=== PATIENT | female | born 1960 | race American Indian/Alaskan Native ===

== ENCOUNTER 2020-05-27 14:07 | Emergency (ER) | payer MEDICAID ==
[2020-05-27 14:16] VITALS: BP 140/93
[2020-05-27] MEDS ORDERED: traMADol 50 MG TAB PO ONE (15:53)
[2020-05-27] MEDS ORDERED: CLINDAMYCIN 300 MG CAP PO ONE (15:53)
--- NOTE | 2020-05-27 15:57 | Emergency Department Report ---
ED ENT HPI - General Chief complaint: Dental/Oral Stated complaint: TOOTH PAIN Time Seen by Provider: 05/27/20 15:29 Source: patient Mode of arrival: Ambulatory Limitations: No Limitations - History of Present Illness MD complaint: tooth pain -: Gradual, days(s) (3) Location: lower lip, other (left lower teeth) Severity: severe Severity scale (0 -10): 10 Quality: aching Consistency: constant Improves with: none Worsens with: eating, other (palpation) Context- Dental: history of dental caries, poor dental care Associated Symptoms: gum swelling, toothache - Related Data Previous Rx's Medication Instructions Recorded Last Taken Type Docusate Sodium [Colace] 100 mg PO BID #60 capsule 11/21/14 Unknown Rx AtorvaSTATin [Lipitor] 40 mg PO QHS #30 tablet 03/03/16 Unknown Rx Clopidogrel [Plavix] 75 mg PO QDAY 30 Days tablet 03/03/16 Unknown Rx Metoprolol [Lopressor TAB] 25 mg PO BID #60 tablet 03/03/16 Unknown Rx Ranolazine [Ranexa] 500 mg PO BID #60 tab.er.12h 03/03/16 Unknown Rx lisinopriL [Zestril TAB] 10 mg PO DAILY #30 tablet 03/03/16 Unknown Rx oxyCODONE /ACETAMINOPHEN [Percocet 1 tab PO Q6HR PRN #30 tablet 03/03/16 Unknown Rx 5/325 mg] Clindamycin [Clindamycin CAP] 300 mg PO Q6H #40 capsule 05/27/20 Unknown Rx Naproxen 500 mg PO Q6H PRN #20 tablet 05/27/20 Unknown Rx traMADoL [Ultram 50 MG tab] 50 mg PO Q6H PRN #12 tablet 05/27/20 Unknown Rx Allergies Allergy/AdvReac Type Severity Reaction Status Date / Time No Known Allergies Allergy Verified 11/17/14 15:47 ED Dental HPI - General Chief complaint: Dental/Oral Stated complaint: TOOTH PAIN Time Seen by Provider: 05/27/20 15:29 Source: patient Mode of arrival: Ambulatory Limitations: No Limitations - Related Data Previous Rx's Medication Instructions Recorded Last Taken Type Docusate Sodium [Colace] 100 mg PO BID #60 capsule 11/21/14 Unknown Rx AtorvaSTATin [Lipitor] 40 mg PO QHS #30 tablet 03/03/16 Unknown Rx Clopidogrel [Plavix] 75 mg PO QDAY 30 Days tablet 03/03/16 Unknown Rx Metoprolol [Lopressor TAB] 25 mg PO BID #60 tablet 03/03/16 Unknown Rx Ranolazine [Ranexa] 500 mg PO BID #60 tab.er.12h 03/03/16 Unknown Rx lisinopriL [Zestril TAB] 10 mg PO DAILY #30 tablet 03/03/16 Unknown Rx oxyCODONE /ACETAMINOPHEN [Percocet 1 tab PO Q6HR PRN #30 tablet 03/03/16 Unknown Rx 5/325 mg] Clindamycin [Clindamycin CAP] 300 mg PO Q6H #40 capsule 05/27/20 Unknown Rx Naproxen 500 mg PO Q6H PRN #20 tablet 05/27/20 Unknown Rx traMADoL [Ultram 50 MG tab] 50 mg PO Q6H PRN #12 tablet 05/27/20 Unknown Rx Allergies Allergy/AdvReac Type Severity Reaction Status Date / Time No Known Allergies Allergy Verified 11/17/14 15:47 ED Review of Systems ROS: Stated complaint: TOOTH PAIN Other details as noted in HPI Comment: All other systems reviewed and negative Constitutional: denies: chills, fever ENT: dental pain. denies: throat pain, congestion Respiratory: denies: cough, shortness of breath, wheezing Cardiovascular: denies: chest pain, palpitations Gastrointestinal: denies: abdominal pain, nausea, diarrhea Genitourinary: denies: urgency, dysuria, discharge Musculoskeletal: denies: back pain, joint swelling, arthralgia Skin: denies: rash, lesions Neurological: denies: headache, weakness, paresthesias Psychiatric: denies: anxiety, depression ED Past Medical Hx - Past Medical History Previous Medical History?: Yes Hx Hypertension: Yes Hx Heart Attack/AMI: No Hx Congestive Heart Failure: No Hx Diabetes: No Hx Liver Disease: No Hx Sickle Cell Disease: No Hx Seizures: No Hx Asthma: No Hx COPD: No Hx HIV: No - Surgical History Past Surgical History?: Yes Additional Surgical History: Hysterectomy with complications of an inadvertent bowel damage leading to colostomy. Colostomy reversal - Social History Smoking Status: Never Smoker - Medications Home Medications: Home Medications Medication Instructions Recorded Confirmed Last Taken Type Docusate Sodium [Colace] 100 mg PO BID #60 capsule 11/21/14 02/29/16 Unknown Rx AtorvaSTATin [Lipitor] 40 mg PO QHS #30 tablet 03/03/16 Unknown Rx Clopidogrel [Plavix] 75 mg PO QDAY 30 Days tablet 03/03/16 Unknown Rx Metoprolol [Lopressor TAB] 25 mg PO BID #60 tablet 03/03/16 Unknown Rx Ranolazine [Ranexa] 500 mg PO BID #60 tab.er.12h 03/03/16 Unknown Rx lisinopriL [Zestril TAB] 10 mg PO DAILY #30 tablet 03/03/16 Unknown Rx oxyCODONE /ACETAMINOPHEN [Percocet 1 tab PO Q6HR PRN #30 tablet 03/03/16 Unknown Rx 5/325 mg] Clindamycin [Clindamycin CAP] 300 mg PO Q6H #40 capsule 05/27/20 Unknown Rx Naproxen 500 mg PO Q6H PRN #20 tablet 05/27/20 Unknown Rx traMADoL [Ultram 50 MG tab] 50 mg PO Q6H PRN #12 tablet 05/27/20 Unknown Rx ED Physical Exam - General Limitations: No Limitations General appearance: alert, in no apparent distress - Head Head exam: Present: atraumatic, normocephalic, normal inspection - Eye Eye exam: Present: normal appearance, PERRL, EOMI Pupils: Present: normal accommodation - ENT ENT exam: Present: normal exam, normal orophraynx, mucous membranes moist, other (pt with very poor dentition. She has small dental abscess to left lower jaw around teeth 22,21,23; mild swelling to left lower lip; no facial cellulitis, drooling or trismus.) - Neck Neck exam: Present: normal inspection, lymphadenopathy (mild anterior cervical ) - Respiratory Respiratory exam: Present: normal lung sounds bilaterally. Absent: respiratory distress - Cardiovascular Cardiovascular Exam: Present: regular rate, normal rhythm. Absent: systolic murmur, diastolic murmur, rubs, gallop - Neurological Exam Neurological exam: Present: alert, oriented X3, CN II-XII intact - Psychiatric Psychiatric exam: Present: normal affect, normal mood - Skin Skin exam: Present: warm, dry, intact, normal color. Absent: rash ED Course Vital Signs 05/27/20 14:13 Temperature 99.4 F Pulse Rate 80 Respiratory 20 Rate Blood Pressure 140/93 [Right] O2 Sat by Pulse 97 Oximetry Critical care attestation.: If time is entered above; I have spent that time in minutes in the direct care of this critically ill patient, excluding procedure time. ED Disposition Clinical Impression: Dental abscess Disposition: TO HOME OR SELFCARE Is pt being admited?: No Does the pt Need Aspirin: No Condition: Stable Instructions: Dental Abscess (ED) Additional Instructions: Take pain medication and antibiotics as prescribed. Follow up with one of the dental clinics given on the list. Return to ED if worse Prescriptions: Clindamycin [Clindamycin CAP] 300 mg PO Q6H #40 capsule Naproxen 500 mg PO Q6H PRN #20 tablet PRN Reason: Pain , Severe (7-10) traMADoL [Ultram 50 MG tab] 50 mg PO Q6H PRN #12 tablet PRN Reason: Pain , Severe (7-10) Time of Disposition: 15:59
== END 2020-05-27 16:13 | disposition home or self-care (01) ==
LOC: ED 14:07
DX: K04.7 Periapical abscess without sinus (principal); I10 Essential (primary) hypertension; Z90.710 Acquired absence of both cervix and uterus; Z79.899 Other long term (current) drug therapy
CPT/HCPCS: 99282

== ENCOUNTER 2021-04-26 08:26 | Emergency (ER) | payer MEDICAID ==
[2021-04-26 12:06] VITALS: BP 145/89
== END 2021-04-26 10:25 | disposition left against medical advice (07) ==
LOC: ED 08:26
DX: R10.9 Unspecified abdominal pain (principal); Z53.21 Procedure and treatment not carried out due to patient leaving prior to being seen by health care provider
CPT/HCPCS: 36415; 80053; 83690; 85025; Q0162